=== PATIENT | female | born 1995 | race Caucasian/White ===

== ENCOUNTER → 2023-02-15 15:49 | Outpatient (BNVA) | payer BC, MEDICAID, SELFPAY | PROVIDERS: Family Provider Family Medicine; PCP Family Medicine; Visit Provider Podiatrist Foot & Ankle Surgery | DX: G58.9 Mononeuropathy, unspecified; M19.072 Primary osteoarthritis, left ankle and foot | CPT/HCPCS: 73610 ==

== ENCOUNTER → 2023-08-05 11:52 | Outpatient (BNVA) | payer BC, MEDICAID, SELFPAY | PROVIDERS: Family Provider Family Medicine; PCP Family Medicine; Visit Provider Registered Nurse Neonatal Intensive Care | DX: M79.671 Pain in right foot (principal) | CPT/HCPCS: 73630 ==

== ENCOUNTER 2023-09-28 12:06 | Outpatient (CLI) | payer BC, MEDICAID, SELFPAY ==
[2023-09-28 12:56] LABS: Basophils # 0.1 10^3/uL (0.0-0.1); Basophils % 0.9 %; Eosinophils # 0.1 10^3/uL (0.0-0.8); Eosinophils % 2.5 %; Hematocrit 41.5 % (36-47); Lymphocytes # 2.1 10^3/uL (0.8-4.8); Lymphocytes % 37.3 %; Mean Corpuscular HGB Conc 33.5 g/dL (30-55); Mean Corpuscular Hemoglobin 31.1 pg (27-33); Mean Corpuscular Volume 92.8 fl (85-98); Mean Platelet Volume 9.4 fL (7.4-10.4); Monocytes # 0.5 10^3/uL (0.2-0.9); Monocytes % 9.6 %; Neutrophils # 2.76 10^3/uL (1.8-7.7); Neutrophils % 49.3 %; Nucleated Red Blood Cells % 0 %; Platelet Count 340 10^3/cmm (157-399); Red Blood Count 4.47 10^6/uL (3.85-5.65); Red Cell Distribution Width 12.1 % (12.1-15.1)
[2023-09-28 13:34] LABS: Alanine Aminotransferase 12 U/L (0-33); Albumin Level 4.3 g/dL (3.5-5.2); Alkaline Phosphatase 63 U/L (35-105); Anion Gap 14.2 (5-19); Aspartate Amino Transferase 16 U/L (0-32); Blood Urea Nitrogen 9 mg/dL (6-20); Calcium 9.1 mg/dL (8.5-10.5); Carbon Dioxide 27 mmol/L (22-29); Chloride 107 mmol/L (98-107); Chol HDL Ratio 2.63 mg/dL (0.0-4.40); Cholesterol 184 mg/dL (0-200); Free T4 Free Thyroxine 0.87 ng/dL (0.82-1.77); Globulin 3.2 g/dL (1.3-4.6); Glomerular Filtration Rate 99.6 mL/min (90-130); Glucose 89 mg/dL (65-115); HDL Cholesterol 70 mg/dL (60-100); LDL Cholesterol Calculated 102 mg/dL (50-129); LDL HDL Ratio 1.46 RATIO (0.00-3.22); Osmolality Calculated 296 mOsm/kg (285-295); Potassium 4.2 mmol/L (3.5-5.1); Sodium 144 mmol/L (136-145); Thyroid Stimulating Hormone 7.74 uIU/mL (0.27-4.20); Total Bilirubin 0.3 mg/dL (0.15-1.2); Total Protein 7.5 g/dL (6.6-8.7); Triglycerides 60 mg/dL (0-150)
== END 2023-09-28 12:07 | disposition home or self-care (01) ==
LOC: LAB 12:07
PROVIDERS: Family Provider Family Medicine; PCP Family Medicine; Visit Provider Family Medicine
DX: E05.90 Thyrotoxicosis, unspecified without thyrotoxic crisis or storm (principal); Z86.39 Personal history of other endocrine, nutritional and metabolic disease
CPT/HCPCS: 36415; 80053; 80061; 84439; 84443; 85025

== ENCOUNTER 2024-01-15 14:44 | Outpatient (CLI) | payer BC, MEDICAID, SELFPAY ==
[2024-01-15 15:25] LABS: Free T4 Free Thyroxine 0.96 ng/dL (0.82-1.77); Thyroid Stimulating Hormone 10.74 uIU/mL (0.27-4.20)
== END 2024-01-15 14:45 | disposition home or self-care (01) ==
LOC: LAB 14:45
PROVIDERS: PCP Family Medicine; Visit Provider Family Medicine
DX: E05.90 Thyrotoxicosis, unspecified without thyrotoxic crisis or storm (principal); Z86.39 Personal history of other endocrine, nutritional and metabolic disease
CPT/HCPCS: 36415; 84439; 84443; 86376

== ENCOUNTER → 2024-03-29 18:57 | Outpatient (BNVA) | payer BC, MEDICAID, SELFPAY | PROVIDERS: PCP Family Medicine; Visit Provider Emergency Medicine | DX: S99.922A Unspecified injury of left foot, initial encounter (principal); X58.XXXA Exposure to other specified factors, initial encounter | CPT/HCPCS: 73630 ==

== ENCOUNTER → 2024-04-05 13:08 | Outpatient (BNVA) | payer BC, MEDICAID, SELFPAY | PROVIDERS: PCP Family Medicine; Visit Provider Family Medicine | DX: E06.3 Autoimmune thyroiditis (principal) | CPT/HCPCS: 84439; 84443 ==

== ENCOUNTER → 2024-04-12 17:34 | Outpatient (BNVA) | payer BC, MEDICAID, SELFPAY | PROVIDERS: PCP Family Medicine; Visit Provider Registered Nurse Neonatal Intensive Care | DX: N92.6 Irregular menstruation, unspecified (principal) | CPT/HCPCS: 81025 ==

== ENCOUNTER → 2024-05-09 09:36 | Outpatient (BNVA) | payer BC, MEDICAID, SELFPAY | PROVIDERS: PCP Family Medicine; Visit Provider Nurse Practitioner Women's Health | DX: Z32.01 Encounter for pregnancy test, result positive (principal) | CPT/HCPCS: 81025; 84702; 86850; 86900 ==

== ENCOUNTER 2024-05-14 07:08 | Emergency (ER) | payer BC, MEDICAID, SELFPAY ==
[2024-05-14 07:17] VITALS: BP 152/73; PULSE 83; RESP 16; TEMP 36.7; O2SAT 95; BMI 38.0
--- NOTE | 2024-05-14 07:17 | ED_ITS ---
HPI - 2 General: Chief complaint: Vaginal Bleeding Stated complaint: spotting (7wks preg) Time Seen by Provider: 05/14/24 07:15 History of Present Illness: 28-year-old female G2, P1 presents to [facility] ER complaining of spotting, she has blood when she wipes.. Has not had to use a pad. She reports she is 7 weeks she has not had confirmation of an intrauterine at this point. She has not established for this with an OB yet. Associated symptoms: Deny abdominal pain, dysuria or vaginal discharge Related Data Previous Rx's Medication Instructions Recorded sumatriptan succinate 25 mg tablet See Rx Instructions PO .COMPLEX 12/25/23 #10 tabs levocetirizine 5 mg tablet (Xyzal) 5 mg PO DAILY PRN allergy symptoms 04/05/24 #60 tabs metoprolol tartrate 25 mg tablet 12.5 mg (1/2 x 25 mg) PO BID #45 04/05/24 tabs levothyroxine 50 mcg tablet 50 mcg PO DAILY #60 tabs 04/08/24 ondansetron HCl 4 mg tablet 4 mg PO Q8H PRN nausea and 05/10/24 vomiting #60 tabs Allergies Allergy/AdvReac Type Severity Reaction Status Date / Time cephalexin [From Keflex] Allergy ALGY-Rash Verified 05/09/24 07:54 Review of Systems 2 Const: Denies: fever(s) or chills Card: Denies: chest pain Resp: Denies: dyspnea GI: Denies: abdominal pain : Reports: vaginal bleeding; Denies: dysuria, urinary frequency, urinary urgency or vaginal discharge Musc: Denies: neck pain or back pain Skin/Breast: Denies: rash PFSH ED 2 PFSH: Medical History Rhinorrhea Víctor's disease Subclinical hypothyroidism Obesity (BMI 35.0-39.9 without comorbidity) Migraine, chronic, without aura Hyperthyroidism Epistaxis Pes planus of both feet Metatarsalgia of right foot Plantar fasciitis, left Surgical History Hx of knee surgery History of tonsillectomy Family History Father Diabetes Mother Hypertension Grandfather Cancer Denies family history of CAD (coronary artery disease) Clotting disorder Dementia Hyperlipidemia Chronic kidney disease (CKD) Anesthesia complication Bleeding disorder Family history of premature coronary artery disease Social History Smoking and tobacco/nicotine status: former use of tobacco/nicotine (quit 06/2023) Alcohol intake: current Alcohol intake frequency: holidays/special occasions only Substance/Drug Use: never Adopted: No service: No Current occupational status: employed Current occupational exposures/hazards: No Physical Exam 2 Const: GENERAL APPEARANCE: cooperative ORIENTATION/CONSCIOUSNESS: Yes awake, Yes oriented to person, Yes oriented to place and Yes oriented to time HENMT: COMMON NORMALS: normocephalic, atraumatic and hearing grossly normal bilaterally HEAD & SCALP: normocephalic and atraumatic Resp: COMMON NORMALS: normal respiratory effort, No retractions, No use of accessory muscles and clear to auscultation bilaterally AUSCULTATION: clear to auscultation bilaterally Cardio: COMMON NORMALS: regular rate, regular rhythm and No murmurs present (Cardio) RATE: regular rate RHYTHM: regular rhythm GI: COMMON NORMALS: Soft to palpation and No hepatosplenomegaly present A USCULTATION: Yes normoactive bowel sounds PALPATION: Yes Soft to palpation, No Tenderness to palpation present (GI), No Guarding due to palpation present (GI) and Yes No hepatosplenomegaly present Extremity: COMMON NORMALS: normal to inspection, capillary refill normal, no clubbing, cyanosis or edema, no calf tenderness and no pedal edema Neuro: SENSORIUM/ORIENTATION: Yes oriented to person, Yes oriented to place and Yes oriented to time Skin: COMMON NORMALS: no rashes or lesions noted GENERAL SKIN EXAM: no rashes or lesions noted Course 2 Vital Signs: Vital signs: Vital Signs Temperature 98.1 F 05/14/24 07:17 Pulse Rate 56 L 05/14/24 12:10 Respiratory Rate 16 05/14/24 07:17 Blood Pressure 137/70 05/14/24 12:10 Pulse Oximetry 99 05/14/24 12:10 Oxygen Delivery Me thod Room Air 05/14/24 07:17 MDM - OB/Uterine Contractions Medical Decision Making No anemia. Ultrasound shows viable intrauterine with good heart tones. Beta-hCG has increased slightly. Discussed with the patient we will see signs are reassuring is no sign of bleeding. She may have had a subchorionic bleed in the past that she still passing a little bit of the old blood but there is no identifiable bleed at this time. Discharge home follow-up with OB as scheduled return if she has further problems Medical Records I reviewed the patient's medical records. Lab Data I reviewed the patient's lab results. 05/14/24 10:37 05/14/24 09:12 Radiology Impressions Obstetrics Ultrasound 05/14/24 07:41 IMPRESSION: Single living intrauterine . Size slightly advanced compared to clinical dates. Clinical review of the dating recommended. Laboratory Results WBC 9.72 10^3/uL (3.29-11.43) 05/14/24 10:37 RBC 5.53 10^6/uL (3.85-5.65) 05/14/24 10:37 Hgb 16.70 g/dL (11.27-16.99) 05/14/24 10:37 Hct 48.2 % (36-47) H 05/14/24 10:37 MCV 87.2 fl (85-98) 05/14/24 10:37 MCH 30.2 pg (27-33) 05/14/24 10:37 MCHC 34.6 g/dL (30-55) 05/14/24 10:37 RDW 11.7 % (12.1-15.1) L 05/14/24 10:37 Plt Count 254 10^3/cmm (157-399) 05/14/24 10:37 MPV 10.2 fL (7.4-10.4) 05/14/24 10:37 Neut % (Auto) 69.0 % 05/14/24 10:37 Lymph % (Auto) 23.1 % 05/14/24 10:37 [place] % (Auto) 6.0 % 05/14/24 10:37 Eos % (Auto) 0.6 % 05/14/24 10:37 Baso % (Auto) 0.6 % 05/14/24 10:37 Neut # (Auto) 6.70 10^3/uL (1.8-7.7) 05/14/24 10:37 Lymph # (Auto) 2.3 10^3/uL (0.8-4.8) 05/14/24 10:37 [place] # (Auto) 0.6 10^3/uL (0.2-0.9) 05/14/24 10:37 Eos # (Auto) 0.1 10^3/uL (0.0-0.8) 05/14/24 10:37 Baso # (Auto) 0.1 10^3/uL (0.0-0.1) 05/14/24 10:37 Nucleated RBC % (auto) 0 % 05/14/24 10:37 Nucleated RBCs # 0.0 /100WBC 05/14/24 10:37 Sodium 137 mmol/L (136-145) 05/14/24 09:12 Potassium 3.7 mmol/L (3.5-5.1) 05/14/24 09:12 Chloride 101 mmol/L (98-107) 05/14/24 09:12 Carbon Dioxide 22 mmol/L (22-29) 05/14/24 09:12 Anion Gap 17.7 (5-19) 05/14/24 09:12 BUN 6 mg/dL (6-20) 05/14/24 09:12 Creatinine 0.6 mg/dL (0.5-0.9) 05/14/24 09:12 GFR Calculation 118.2 mL/min (90-130) 05/14/24 09:12 Glucose 85 mg/dL (65-115) 05/14/24 09:12 Calculated Osmolality 281 mOsm/kg (285-295) L 05/14/24 09:12 Calcium 9.1 mg/dL (8.5-10.5) 05/14/24 09:12 Total Bilirubin 0.5 mg/dL (0.15-1.2) 05/14/24 09:12 AST 14 U/L (0-32) 05/14/24 09:12 ALT 13 U/L (0-33) 05/14/24 09:12 Alkaline Phosphatase 61 U/L (35-105) 05/14/24 09:12 Total Protein 6.9 g/dL (6.6-8.7) 05/14/24 09:12 Albumin 4.0 g/dL (3.5-5.2) 05/14/24 09:12 Globulin 2.9 g/dL (1.3-4.6) 05/14/24 09:12 Ser , Semi-Qnt 758972.00 mIU/mL 05/14/24 09:12 Urine Color Dark yellow (Yellow) A 05/14/24 08:53 Urine Appearance Clear (CLEAR) 05/14/24 08:53 Urine pH 6.0 (5-7) 05/14/24 08:53 Ur Specific [place] 1.028 (1.005-1.030) 05/14/24 08:53 Urine Protein Trace (Negative) A 05/14/24 08:53 Urine Glucose (UA) Negative (Normal) 05/14/24 08:53 Urine Ketones 1+ (Negative) H 05/14/24 08:53 Urine Blood Trace (Negative) A 05/14/24 08:53 Urine Nitrate Negative (Negative) 05/14/24 08:53 Urine Bilirubin Negative (Negative) 05/14/24 08:53 Urine Urobilinogen 1.0 mg/dL (Negative) 05/14/24 08:53 Ur Leukocyte Esterase Trace (Negative) A 05/14/24 08:53 Urine RBC 0-2 /hpf (0-2) 05/14/24 08:53 Urine WBC 0-5 /hpf (0-5) 05/14/24 08:53 Ur Squamous Epith Cells 0-5 /hpf (0-5) 05/14/24 08:53 Amorphous Sediment Not Reportable 05/14/24 08:53 Urine Bacteria None seen /hpf (NONE) 05/14/24 08:53 Hyaline Casts 0.40 /lpf 05/14/24 08:53 All radiology interpretation(s) finalized by discharge Discharge Plan Discharge Patient Disposition: Home Clinical Impression: First trimester bleeding Condition: Stable Prescriptions: No Action sumatriptan succinate 25 mg tablet See Rx Instructions PO .COMPLEX Qty: 10 0RF Rx Instructions: take 1 tab at onset of headache; if no relief may repeat 1 tab after at least 2 hrs; max = 4 tabs/24 hr PO metoprolol tartrate 25 mg tablet 12.5 mg PO BID Qty: 45 1RF levocetirizine [Xyzal] 5 mg tablet 5 mg PO DAILY PRN (Reason: allergy symptoms) Qty: 60 0RF levothyroxine 50 mcg tablet 50 mcg PO DAILY Qty: 60 1RF ondansetron HCl 4 mg tablet 4 mg PO Q8H PRN (Reason: nausea and vomiting) Qty: 60 2RF Discharge Orders: Discharge ED (Routine); Ordered 05/14/24 Ordered By: Mk Oliveira Referrals: Victorino Tellez MD [Primary Care Provider] - Patient Instructions: Opioid Safety, Pain Management Activity Restrictions/Additional Instructions: Thank you for choosing [facility] for your healthcare needs today. It is very important that you follow up as instructed or that you return to the Emergency Department should you have concerns or if your condition changes or worsens in any way. You were seen in the emergency room with complaints of vaginal bleeding first trimester. Ultrasound showed a viable consistent with your LMP dating. Your hemoglobin was normal urine was normal. Follow-up with your CLIENT RESOLUTION SPECIALIST. Coding Level of Care Code ED Care Aid for Tiffany Brooke
--- NOTE | 2024-05-14 07:41 | USR_ITS ---
PROCEDURE INFORMATION: Exam: US First Trimester, Transabdominal and US , Transvaginal Exam date and time: 05/14/2024 7:49 AM Age: 28 years old Clinical indication: Screening exam; Routine US, uterus; Additional info: Spotting LABS AND CLINICAL REPORTS: Last menstrual period start date: 03/22/2024 Gestational age (Established): 7 w 4 d Estimated due date (Established): 12/27/2024 TECHNIQUE: Imaging protocol: Real-time transabdominal obstetrical ultrasound of the maternal pelvis and a first trimester , less than 14 weeks 0 days, with image documentation. Transvaginal imaging was used for better evaluation of the fetus, adnexa, and/or cervix. COMPARISON: No relevant prior studies available. FINDINGS: GESTATION: Gestation: Single living intrauterine . Yolk sac measures 3.5 mm. Embryo/ cardiac activity (BPM): 165 bpm. Extra-embryonic membranes/Placenta: Unremarkable. No subchorionic bleed. Amniotic/Chorionic fluid: Amniotic and extra-amniotic fluid are normal for gestational age. BIOMETRY: Gestational age (AUA): 8 weeks 2 days; compare LMP 7 weeks 4 days. Estimated due date (AUA): 12/22/2024; compare LMP 12/30/2024. [place] rump length (CRL): 8 weeks 2 days. Mean sac diameter: 2.83 cm. EGA (MSD) is 7 w 6 d MATERNAL: Uterus: 11.7 x 8.4 x 8.5 cm transabdominally, 11.5 x 6.7 x 7.1 cm transvaginally Anteflexed, retroverted. Cervix: Unremarkable. Endocervical canal is closed. Right ovary/adnexa: Right ovary. Right ovary 3.7 x 2.2 x 3.3 cm. 1.7 cm corpus luteum. No cyst or mass. Normal arterial and venous color and pulsed Doppler blood flow. Left ovary/adnexa: Left ovary 2.9 x 2.4 x 2.4 cm. No cyst or mass. Normal arterial and venous color and pulsed Doppler blood flow. Intraperitoneal space: No intraperitoneal free fluid. US/US OB <=14 wk fetus w transvag IMPRESSION: Single living intrauterine . Size slightly advanced compared to clinical dates. Clinical review of the dating recommended.
[2024-05-14 09:10] LABS: Bilirubin Urine Negative (Negative); Blood Urine Trace (Negative); Glucose Urine UA Negative (Normal); Ketones Urine 1+ (Negative); Leukocyte Esterase Urine Trace (Negative); Nitrate Urine Negative (Negative); Protein Urine Trace (Negative); Specific Gravity, Urine 1.028 (1.005-1.030); Urine Appearance Clear (CLEAR); Urine Color Dark Yellow (Yellow)
[2024-05-14 09:15] LABS: Add Urine Microscopic? YES; Bacteria Urine None Seen /hpf; RBC Urine 0-2 /hpf (0-2); Squamous Epithelial Cell Urine 0-5 /hpf (0-5); WBC Urine 0-5 /hpf (0-5)
[2024-05-14 09:33] LABS: Alanine Aminotransferase 13 U/L (0-33); Alkaline Phosphatase 61 U/L (35-105); Aspartate Amino Transferase 14 U/L (0-32); Blood Urea Nitrogen 6 mg/dL (6-20); Calcium 9.1 mg/dL (8.5-10.5); Carbon Dioxide 22 mmol/L (22-29); Chloride 101 mmol/L (98-107); Creatinine Clr Calc Pharmacy 177.0137; Globulin 2.9 g/dL (1.3-4.6); Glomerular Filtration Rate 118.2 mL/min (90-130); Glucose 85 mg/dL (65-115); Osmolality Calculated 281 mOsm/kg (285-295); Sodium 137 mmol/L (136-145); Total Bilirubin 0.5 mg/dL (0.15-1.2); Total Protein 6.9 g/dL (6.6-8.7)
[2024-05-14 09:36] LABS: Anion Gap 17.7 (5-19); Potassium 3.7 mmol/L (3.5-5.1)
[2024-05-14 10:24] VITALS: BP 137/72; PULSE 51; O2SAT 100
[2024-05-14 11:01] LABS: Basophils # 0.1 10^3/uL (0.0-0.1); Basophils % 0.6 %; Eosinophils # 0.1 10^3/uL (0.0-0.8); Eosinophils % 0.6 %; Hematocrit 48.2 % (36-47); Lymphocytes # 2.3 10^3/uL (0.8-4.8); Lymphocytes % 23.1 %; Mean Corpuscular HGB Conc 34.6 g/dL (30-55); Mean Corpuscular Hemoglobin 30.2 pg (27-33); Mean Corpuscular Volume 87.2 fl (85-98); Mean Platelet Volume 10.2 fL (7.4-10.4); Monocytes # 0.6 10^3/uL (0.2-0.9); Nucleated Red Blood Cells % 0 %; Platelet Count 254 10^3/cmm (157-399); Red Blood Count 5.53 10^6/uL (3.85-5.65); Red Cell Distribution Width 11.7 % (12.1-15.1); White Blood Count 9.72 10^3/uL (3.29-11.43)
[2024-05-14 12:10] VITALS: BP 137/70; PULSE 56; O2SAT 99
== END 2024-05-14 11:30 | disposition home or self-care (01) ==
PROVIDERS: Emergency Provider Family Medicine; PCP Family Medicine
DX: O20.9 Hemorrhage in early pregnancy, unspecified (principal); Z3A.01 Less than 8 weeks gestation of pregnancy; Z87.891 Personal history of nicotine dependence
CPT/HCPCS: 36415; 76801; 76817; 80053; 81001; 84702; 85025; 99284

== ENCOUNTER → 2024-05-20 14:14 | Outpatient (BNVA) | payer BC, MEDICAID, SELFPAY | PROVIDERS: PCP Family Medicine; Visit Provider Nurse Practitioner Women's Health | DX: Z36.9 Encounter for antenatal screening, unspecified (principal) | CPT/HCPCS: 76801 ==

== ENCOUNTER → 2024-05-28 14:59 | Outpatient (BNVA) | payer BC, MEDICAID, SELFPAY | PROVIDERS: PCP Family Medicine; Visit Provider Nurse Practitioner Women's Health | DX: Z34.91 Encounter for supervision of normal pregnancy, unspecified, first trimester (principal); Z3A.10 10 weeks gestation of pregnancy | CPT/HCPCS: 76801 ==

== ENCOUNTER → 2024-06-03 09:01 | Outpatient (BNVA) | payer BC, MEDICAID, SELFPAY | PROVIDERS: PCP Family Medicine; Visit Provider Nurse Practitioner Women's Health | DX: Z34.90 Encounter for supervision of normal pregnancy, unspecified, unspecified trimester (principal) | CPT/HCPCS: 80307; 84315; 84439; 84443; 84481; 85025; 86592; 86762; 86803; 86850; 86900; 87086; 87340; 87491; 87591; 87661; 87806 ==

== ENCOUNTER 2024-06-15 23:49 | Emergency (ER) | payer BC, MEDICAID, SELFPAY ==
[2024-06-15 23:54] VITALS: BP 123/87; PULSE 109; RESP 16; TEMP 36.4; O2SAT 96; BMI 35.9
[2024-06-16 00:45] LABS: Covid PCR NEGATIVE (Negative); Influenza A NEGATIVE (Negative); Influenza B NEGATIVE (Negative); Respiratory Syncytial Virus Ce NEGATIVE (Negative)
== END 2024-06-16 03:35 | disposition left against medical advice (07) ==
PROVIDERS: Emergency Medicine; Emergency Provider Family Medicine; PCP Family Medicine
DX: Z53.21 Procedure and treatment not carried out due to patient leaving prior to being seen by health care provider (principal)
CPT/HCPCS: 87637

== ENCOUNTER → 2024-06-19 10:20 | Outpatient (BNVA) | payer BC, MEDICAID, SELFPAY | PROVIDERS: PCP Family Medicine; Visit Provider Obstetrics & Gynecology | DX: Z34.90 Encounter for supervision of normal pregnancy, unspecified, unspecified trimester (principal); Z34.80 Encounter for supervision of other normal pregnancy, unspecified trimester | CPT/HCPCS: 82950; 84315; 87624 ==

== ENCOUNTER → 2024-07-15 08:02 | Outpatient (BNVA) | payer BC, MEDICAID, SELFPAY | PROVIDERS: PCP Family Medicine; Visit Provider Nurse Practitioner Women's Health | DX: Z34.92 Encounter for supervision of normal pregnancy, unspecified, second trimester (principal) | CPT/HCPCS: 82105; 84315 ==

== ENCOUNTER → 2024-08-13 09:32 | Outpatient (BNVA) | payer BC, MEDICAID, SELFPAY | PROVIDERS: PCP Family Medicine; Visit Provider Obstetrics & Gynecology | DX: Z34.80 Encounter for supervision of other normal pregnancy, unspecified trimester (principal) | CPT/HCPCS: 76805 ==

== ENCOUNTER → 2024-08-19 08:31 | Outpatient (BNVA) | payer BC, MEDICAID, SELFPAY | PROVIDERS: PCP Family Medicine; Visit Provider Obstetrics & Gynecology | DX: Z3A.10 10 weeks gestation of pregnancy (principal) | CPT/HCPCS: 84315 ==

== ENCOUNTER → 2024-09-09 11:04 | Outpatient (BNVA) | payer BC, MEDICAID, SELFPAY | PROVIDERS: PCP Family Medicine; Visit Provider Nurse Practitioner Women's Health | DX: Z34.80 Encounter for supervision of other normal pregnancy, unspecified trimester (principal) | CPT/HCPCS: 84315 ==

== ENCOUNTER → 2024-10-16 13:45 | Outpatient (BNVA) | payer BC, MEDICAID, SELFPAY | PROVIDERS: PCP Family Medicine; Visit Provider Obstetrics & Gynecology | DX: Z34.92 Encounter for supervision of normal pregnancy, unspecified, second trimester (principal); Z67.91 Unspecified blood type, Rh negative | CPT/HCPCS: 82950; 84315; 84439; 84443; 84481; 85025; 86850 ==

== ENCOUNTER → 2024-10-21 09:56 | Outpatient (BNVA) | payer BC, MEDICAID, SELFPAY | PROVIDERS: PCP Family Medicine; Visit Provider Obstetrics & Gynecology | DX: O26.899 Other specified pregnancy related conditions, unspecified trimester (principal); Z67.91 Unspecified blood type, Rh negative; Z3A.30 30 weeks gestation of pregnancy | CPT/HCPCS: 84315 ==

== ENCOUNTER → 2024-11-04 09:02 | Outpatient (BNVA) | payer BC, MEDICAID, SELFPAY | PROVIDERS: PCP Family Medicine; Visit Provider Nurse Practitioner Women's Health | DX: Z34.90 Encounter for supervision of normal pregnancy, unspecified, unspecified trimester (principal) | CPT/HCPCS: 84315 ==

== ENCOUNTER → 2024-11-18 10:25 | Outpatient (BNVA) | payer BC, MEDICAID, SELFPAY | PROVIDERS: PCP Family Medicine; Visit Provider Nurse Practitioner Women's Health | DX: Z34.90 Encounter for supervision of normal pregnancy, unspecified, unspecified trimester (principal) | CPT/HCPCS: 76816; 84315 ==

== ENCOUNTER → 2024-12-02 08:58 | Outpatient (BNVA) | payer BC, MEDICAID, SELFPAY | PROVIDERS: PCP Family Medicine; Visit Provider Obstetrics & Gynecology | DX: Z34.90 Encounter for supervision of normal pregnancy, unspecified, unspecified trimester (principal); E05.90 Thyrotoxicosis, unspecified without thyrotoxic crisis or storm | CPT/HCPCS: 84315; 84443; 87081 ==

== ENCOUNTER → 2024-12-09 09:11 | Outpatient (BNVA) | payer BC, MEDICAID, SELFPAY | PROVIDERS: PCP Family Medicine; Visit Provider Obstetrics & Gynecology | DX: Z34.90 Encounter for supervision of normal pregnancy, unspecified, unspecified trimester (principal) | CPT/HCPCS: 84315 ==

== ENCOUNTER → 2024-12-16 08:15 | Outpatient (BNVA) | payer BC, MEDICAID, SELFPAY | PROVIDERS: PCP Family Medicine; Visit Provider Nurse Practitioner Women's Health | DX: Z34.90 Encounter for supervision of normal pregnancy, unspecified, unspecified trimester (principal) | CPT/HCPCS: 84315 ==

== ENCOUNTER → 2024-12-23 09:51 | Outpatient (BNVA) | payer BC, MEDICAID, SELFPAY | PROVIDERS: PCP Family Medicine; Visit Provider Obstetrics & Gynecology | DX: Z34.90 Encounter for supervision of normal pregnancy, unspecified, unspecified trimester (principal) | CPT/HCPCS: 84315 ==

== ENCOUNTER 2024-12-24 04:16 | Inpatient (IN) | payer BC, MEDICAID, SELFPAY ==
[2024-12-24] VITALS (119 sets, daily range): BP systolic 86–181; BP diastolic 50–100; PULSE 51–103; RESP 16–17; TEMP 36.5–37.2; O2SAT 92–100; BMI 43.5
[2024-12-24 03:49] LABS: Hematocrit 35.3 % (36-47); Hemoglobin 11.70 g/dL (11.27-16.99); Mean Corpuscular HGB Conc 33.1 g/dL (30-55); Mean Corpuscular Hemoglobin 28.9 pg (27-33); Mean Corpuscular Volume 87.2 fl (85-98); Nucleated Red Blood Cells % 0 %; Platelet Count 342 10^3/cmm (157-399); Red Blood Count 4.05 10^6/uL (3.85-5.65); White Blood Count 11.67 10^3/uL (3.29-11.43)
--- NOTE | 2024-12-24 04:45 | PM.OBGYHP ---
Providers/Chief Complaint Admitting Physician: Murali Brooks MD Primary UI APPLICATION DEVELOPER: Murali Brooks MD Primary Care Provider: Victorino Tellez MD Chief Complaint: Contractions HPI UI APPLICATION DEVELOPER History of Present Illness Marisol Waller is a 29 year old female EDC December 27, 2024 At 39 w 4 d No complications c/o painful uterine contractions no bleeding / fluid leakage + movements Present Details : 2 Para: 1 Labs Rubella: Immune RPR: Negative GBS: Positive Medications/Allergies Home Medications ?Medication ?Instructions ?Recorded ?Confirmed ?Last Taken ?Type sumatriptan succinate 25 mg tablet See Rx Instructions PO .COMPLEX 12/25/23 12/24/24 12/23/24 Rx #10 tabs metoprolol tartrate 25 mg tablet 12.5 mg (1/2 x 25 mg) PO BID #45 12/16/24 12/24/24 12/23/24 Rx tabs levothyroxine 75 mcg tablet See Rx Instructions .Route 12/20/24 12/24/24 12/23/24 Rx .COMPLEX #30 tabs Allergies Allergy/AdvReac Type Severity Reaction Status Date / Time cephalexin (From Keflex) Allergy ALGY-Rash Verified 12/24/24 03:39 PFSH UI APPLICATION DEVELOPER PFSH: Medical History Rhinorrhea Víctor's disease Subclinical hypothyroidism Obesity (BMI 35.0-39.9 without comorbidity) Migraine, chronic, without aura Hyperthyroidism Epistaxis Pes planus of both feet Metatarsalgia of right foot Plantar fasciitis, left Surgical History Hx of knee surgery History of tonsillectomy Family History Father Diabetes Mother Hypertension Grandfather Cancer Denies family history of CAD (coronary artery disease) Clotting disorder Dementia Hyperlipidemia Chronic kidney disease (CKD) Anesthesia complication Bleeding disorder Family history of premature coronary artery disease Social History Smoking and tobacco/nicotine status: never used tobacco/nicotine Alcohol intake: current Alcohol intake frequency: holidays/special occasions only Substance/Drug Use: never Adopted: No service: No Current occupational status: employed Current occupational exposures/hazards: No History History History 2 Term 1 0 Miscarriages/Ectopic 0 Living Children 1 Care 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 Estimated Delivery Date Method Current WG Current Estimate 12/27/24 LMP (Certain) 39w 5d Other Estimates 12/22/24 Ultrasound #1 40w 3d Specific Issues/Plans NAUSEA: Reglan and zofran sent for use as needed CONSTIPATION: colace sent to pharmacy, discussed using zofran sparingly MIGRAINES: takes metoprolol daily for migraine prevention, sumatriptan as needed RH NEGATIVE STATUS VÍCTOR'S: takes 75 mcg levothyroxine daily Vitals/I&O/Wt Last Vital Signs Temp 97.7 F 12/24/24 20:50 Pulse 84 12/25/24 00:28 Resp 16 12/25/24 00:28 BP 121/71 12/25/24 00:28 Pulse Ox 98 12/24/24 20:50 O2 Del Method Room Air 12/24/24 20:50 12/24/24 12/24/24 12/25/24 14:59 22:59 06:59 Intake Total 875 / 875 1550 / 2425 Output Total 800 / 800 Balance 875 / 875 750 / 1625 Weight last 48 hrs Weight 278 lb 0.011 oz Weight 278 lb Physical Exam Narrative: Weight 278 lbs; 5?7? General awake, alert, appropriate VS normal Lungs: clear Cor: RRR FH 38 cm, cephalic Cervix: 4 ? 5 cm / 75% / -2 Ext: no edema External monitor: regular UCs heart tracing good variability, + accelerations Urinary Catheter Management: [place] Latex: Cath Placed During This Visit: yes, but has since been removed by the nurse Reason for Continuing Indwelling Catheter: Decision to DC Catheter Urinary Catheter Date of Insertion: 12/24/24 Urinary Catheter Time of Insertion: 06:45 Date Urinary Catheter Removed: 12/24/24 Time Urinary Catheter Discontinued: 15:50 Data 12/24/24 03:20 Results Labs OB ([facility]): Obstetrics US 11/18/24 Blood Type O Negative 12/24/24 Antibody Screen Negative 12/24/24 Hct, (36-47) 35.3 % L 12/24/24 Hgb, (11.27-16.99) 11.70 g/dL 12/24/24 Rho(D) Type Rh negative 12/24/24 Plt Count, (157-399) 342 10^3/cmm 12/24/24 Hep Bs Antigen, (Nonreactive) Non-reactive 06/03/24 Hepatitis C Antibody, (Nonreactive) Non-reactive 06/03/24 Rubella IgG Antibody, (0.0-10.0) 56.4 IU/mL H 06/03/24 RPR, (Nonreactive) Nonreactive 06/03/24 HIV 1&2 Ab & HIV 1 Ag, (Non-Reactiv) Non-reactive 06/03/24 TSH, (0.27-4.20) 5.10 uIU/mL H 12/02/24 Free T4, (0.82-1.77) 0.78 ng/dL L 10/16/24 Glucose 1 Hr 50 gm, (85-140) 97 mg/dL 10/16/24 Ser , Semi-Qnt 331572.00 mIU/mL 05/14/24 HCG, Qual, (Negative) Positive H 05/09/24 Urine Opiates Screen, (Negative) Negative ng/mL 12/24/24 Ur Barbiturates Screen, (Negative) Negative ng/mL 12/24/24 Ur Phencyclidine Scrn, (Negative) Negative ng/mL 12/24/24 Ur Amphetamines Screen, (Negative) Negative ng/mL 12/24/24 U Benzodiazepines Scrn, (Negative) Negative ng/mL 12/24/24 Urine Cocaine Screen, (Negative) Negative ng/mL 12/24/24 U Marijuana (THC) Screen, (Negative) Negative ng/mL 12/24/24 Micro Urine Specimen 06/03/24 Pap Smear Interpret See note 06/19/24 A&P Assessment and plan 1. : 39 w 4 d Active labor Fetus reassuring Admit Labor management Rh negative GBS + Start Abx per protocol 2. Rh negative status during : PDMP PDMP Reviewed: Not Reviewed Attestations Medical Necessity Statement*: patient at term, with active labor Coding Level of Care Code Acute Code for Chg Fwd Diagnoses Z34.90 Rh negative status during O26.899; Z67.91
[2024-12-24 04:47] LABS: PCP Screen Urine Negative (Negative)
[2024-12-24] MEDS: ROPivacaine syringe 100 MG/50 ML SYRINGE 13 MG EPIDURAL (05:36)
--- NOTE | 2024-12-24 05:37 | ANES.PREANE2 ---
Pre-Anesthetic Assessment Height/Weight: Height 1.7 m Weight 126.099 kg Pulse BP Pulse Ox 70 135/68 98 12/24/24 05:32 12/24/24 05:32 12/24/24 05:32 Preop Diagnosis: IUP Familial anesthetic complications: none Was Beta Neha taken within 24 hours: Yes Was Clonidine taken within 24 hours: N/A Social No alcohol and No tobacco Exam alert and oriented x 3 Airway Submandibular: within normal limits Cervical ROM: within normal limits Mallampati: Class II Dentition: full Pulmonary None reported CV/HEM Hypertension None reported Hepatic None reported GI None reported Metabolic Morbid Obesity [facility] None reported Neuropsych Headache Anesthetic Plan ASA status: 3 Anesthesia: Anesthesia Evaluation and Regional (specify below) Risk of > 500 ml blood loss (7ml/kg in children): Yes, adequate IV access and fluids planned Medications/Allergies Home Medications ?Medication ?Instructions ?Recorded ?Confirmed ?Last Taken ?Type sumatriptan succinate 25 mg tablet See Rx Instructions PO .COMPLEX 12/25/23 12/24/24 12/23/24 Rx #10 tabs metoprolol tartrate 25 mg tablet 12.5 mg (1/2 x 25 mg) PO BID #45 12/16/24 12/24/24 12/23/24 Rx tabs levothyroxine 75 mcg tablet See Rx Instructions .Route 12/20/24 12/24/24 12/23/24 Rx .COMPLEX #30 tabs Allergies Allergy/AdvReac Type Severity Reaction Status Date / Time cephalexin (From Keflex) Allergy ALGY-Rash Verified 12/24/24 03:39 [facility] Anesthesia Medical History Rhinorrhea Víctor's disease Subclinical hypothyroidism Obesity (BMI 35.0-39.9 without comorbidity) Migraine, chronic, without aura Hyperthyroidism Epistaxis Pes planus of both feet Metatarsalgia of right foot Plantar fasciitis, left Surgical History Hx of knee surgery History of tonsillectomy Family History Father Diabetes Mother Hypertension Grandfather Cancer Denies family history of CAD (coronary artery disease) Clotting disorder Dementia Hyperlipidemia Chronic kidney disease (CKD) Anesthesia complication Bleeding disorder Family history of premature coronary artery disease Social History Smoking and tobacco/nicotine status: never used tobacco/nicotine Alcohol intake: current Alcohol intake frequency: holidays/special occasions only Substance/Drug Use: never Adopted: No service: No Current occupational status: employed Current occupational exposures/hazards: No Female Reproductive History : 2 Data Anesthesia 12/24/24 03:20 Short CBC 12/24/24 Range/Units 03:20 WBC 11.67 H (3.29-11.43) 10^3/uL Hgb 11.70 (11.27-16.99) g/dL Hct 35.3 L (36-47) % MCV 87.2 (85-98) fl Plt Count 342 (157-399) 10^3/cmm Neut % (Auto) 65.8 % Neut # (Auto) 7.68 (1.8-7.7) 10^3/uL Blood Bank 12/24/24 03:20 Blood Type O Negative Rho(D) Type Rh negative Antibody Screen Negative Anesthesia Procedures Epidural Time Out Performed: Yes Consents Signed: Procedure Consent Consent: from patient, risks and benefits reviewed and patient agrees to proceed Lumbar Level: L3-L4 Epidural position: sitting Epidural procedure: sterile prep of area, 1% lidocaine to numb the area, 18 g needle, negative for paresthesia passed, neg for paresthesia, test dose given, 1.5% xylocaine 1:200k epi, placed PCEA, no systemic response, sterile dressing applied, L.U.D. no apparent complications and 0.2% Ropiavacaine @ mls/hr (13) Additional Comments: JESUS at 7.5, negative heme/CSF wiht aspiration. taped at 13 at skin. tolerated well.
[2024-12-24] MEDS: ROPivacaine syringe 100 MG/50 ML SYRINGE 11 MG EPIDURAL ×2 (09:26→13:24)
[2024-12-24] MEDS: oxytocin 30 UNIT/500 ML BAG 600 UNIT IV (16:05)
[2024-12-24] MEDS: lidocaine 2% INJ 20 mL INJECTION (16:14)
--- NOTE | 2024-12-24 16:30 | PM.DELIVERY ---
Delivery Note: Date of delivery: December 24, 2024 Pre-delivery diagnoses: 39 w 4 d active labor Post-delivery diagnoses: 39 w 4 d active labor Procedure: vaginal delivery repair of loida-urethral and labial lacerations Op report anesthesia: Epidural Delivering Physician: Murali Brooks MD Estimated blood loss (mL): 300 Findings: , vigorous Nuchal cord x three Cord gases and blood obtained Normal placenta and cord No episiotomy Superficial periurethral and labial lacerations repaired EBL: 300 cc No complications Pre-Delivery Course: normal labor course fetus reassuring throughout Delivery: vaginal Post-Delivery Status: good History History History 2 Term 1 0 Miscarriages/Ectopic 0 Living Children 1 A&P Assessment and plan 1. Vaginal delivery: PDMP PDMP Reviewed: Not Reviewed Coding Level of Care Code Acute Code for Chg Fwd Diagnoses Vaginal delivery O80
[2024-12-24] MEDS: benzocaine-menthol 78 gm Canister 1 SPRAY TOPICAL (17:58)
[2024-12-25 00:28] VITALS: BP 121/71; PULSE 84; RESP 16
[2024-12-25 04:09] LABS: Hematocrit 31.6 % (36-47); Hemoglobin 10.30 g/dL (11.27-16.99); Mean Corpuscular HGB Conc 32.6 g/dL (30-55); Mean Corpuscular Hemoglobin 29.2 pg (27-33); Mean Corpuscular Volume 89.5 fl (85-98); Platelet Count 263 10^3/cmm (157-399); Red Blood Count 3.53 10^6/uL (3.85-5.65); White Blood Count 16.47 10^3/uL (3.29-11.43)
[2024-12-25 04:18] VITALS: BP 142/84; PULSE 80; RESP 16; TEMP 36.6; O2SAT 99
--- NOTE | 2024-12-25 08:00 | ANE.PACU2 ---
Inpatient post-anesthesia follow up: Airway intact: Yes Vital signs: Temperature 98.0 F Pulse Rate 82 Respiratory Rate 18 Blood Pressure 138/90 Pulse Oximetry 99 Oxygen Delivery Me thod Room Air Oxygen Flow Rate Fraction of Inspir ed Oxygen Hydration adequate: Yes Nausea and vomiting: No Pain level: 1 Mental status: Baseline Epidural Start/End: Epidural Start Date: 12/24/24 Epidural Start Time: 05:15 Epidural End Date: 12/24/24 Epidural End Time: 17:18
[2024-12-25 10:00] VITALS: BP 146/98; PULSE 68; RESP 16; TEMP 36.8
[2024-12-25] MEDS: PRENATAL VIT NO.130/IRON/FOLIC 1 EACH TABLET PO (10:07)
[2024-12-25 12:27] VITALS: BP 130/78; PULSE 70; RESP 17; O2SAT 98
--- NOTE | 2024-12-25 12:55 | P.PN_ITS ---
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 Subjective: Interval history: no c/o no headaches, dizziness, nausea, abdominal pain, bleeding normal lochia mild perineal pain, relieved with pain meds eating, voiding, ambulating well Labor: Station: +2 Amniotic Membrane Status: Ruptured Monitor Mode: Palpation Contraction Pattern: Regular Status: Category I Vitals/I&O/Wt Last Vital Signs Temp 97.9 F 12/26/24 04:54 Pulse 70 12/26/24 04:54 Resp 16 12/26/24 04:54 BP 153/77 12/26/24 04:54 Pulse Ox 99 12/26/24 04:54 O2 Del Method Room Air 12/26/24 04:54 12/25/24 12/26/24 12/26/24 22:59 06:59 14:59 Intake Total 1999 Balance 1999 Physical Exam 2 Narrative: afebrile, VS normal comfortable, awake, alert Abd: soft, nontender. fundus firm Ext: no edema; nontender Urinary Catheter Management: [place] Latex: Cath Placed During This Visit: yes, but has since been removed by the nurse Reason for Continuing Indwelling Catheter: Decision to DC Catheter Urinary Catheter Date of Insertion: 12/24/24 Urinary Catheter Time of Insertion: 06:45 Date Urinary Catheter Removed: 12/24/24 Time Urinary Catheter Discontinued: 15:50 Data 12/25/24 04:00 A&P Assessment and plan 1. Vaginal delivery: PPD #1 doing well normal course continue care PDMP PDMP Reviewed: Not Reviewed Attestations 2 Medical Necessity Statement*: patient s/p vaginal delivery, for care Coding Level of Care Code Acute Code for Chg Fwd Diagnoses Vaginal delivery O80
[2024-12-25 16:40] VITALS: BP 135/89; PULSE 70; RESP 17; TEMP 36.8
[2024-12-25 22:44] VITALS: BP 129/94; PULSE 82; TEMP 36.6; O2SAT 98
[2024-12-26 04:54] VITALS: BP 153/77; PULSE 70; RESP 16; TEMP 36.6; O2SAT 99
[2024-12-26] MEDS: PRENATAL VIT NO.130/IRON/FOLIC 1 EACH TABLET PO (09:19)
[2024-12-26 10:00] VITALS: BP 144/83; PULSE 77; RESP 18; TEMP 36.7; O2SAT 98
--- NOTE | 2024-12-26 13:05 | PM.OBGYDC ---
Discharge Providers RN DOCUMENTATION Date of Admission: 12/24/24 04:16 Date of Discharge: 12/26/24 Attending Provider at Admission: Murali Brooks MD Attending Provider at Discharge: Murali Brooks MD Consults: none Primary RN DOCUMENTATION: Murali Brooks MD Primary Care Provider: Victorino Tellez MD Diagnoses at Discharge Discharge Diagnosis 1. Vaginal delivery: Details from hospital stay: 29 y.o. at 39 w 4 d admitted with c/o painful uterine contractions cervix was 4-5 cm on admission patient progressed to complete dilatation fetus was reassuring throughout patient delivered vaginally without any complications small periurethral and labial lacerations were repaired patient did well and was discharged to home on the second day Reason for Visit Reason for Visit: Contractions Brief History: 29 y.o. at 39 w 4 d admitted with c/o painful uterine contractions Hospital Course Hospital Course 29 y.o. at 39 w 4 d admitted with c/o painful uterine contractions cervix was 4-5 cm on admission patient progressed to complete dilatation fetus was reassuring throughout patient delivered vaginally without any complications small periurethral and labial lacerations were repaired patient did well and was discharged to home on the second day Information Peripartum Data: Infant Delivery Method: Vaginal Laceration description: Periurethral - 1st Degree Episiotomy description: None complications: none Physical Exam Narrative: afebrile, VS normal comfortable, awake, alert Lungs: clear Cor: RRR Abd: soft, nontender. fundus firm Ext: no edema; nontender Hgb 10.3 Urinary Catheter Management: [place] Latex: Cath Placed During This Visit: yes, but has since been removed by the nurse Reason for Continuing Indwelling Catheter: Decision to DC Catheter Urinary Catheter Date of Insertion: 12/24/24 Urinary Catheter Time of Insertion: 06:45 Date Urinary Catheter Removed: 12/24/24 Time Urinary Catheter Discontinued: 15:50 History History History 2 Term 1 0 Miscarriages/Ectopic 0 Living Children 1 Discharge Data Studies Completed and Pending Laboratory Results WBC 16.47 10^3/uL (3.29-11.43) H 12/25/24 04:00 RBC 3.53 10^6/uL (3.85-5.65) L 12/25/24 04:00 Hgb 10.30 g/dL (11.27-16.99) L 12/25/24 04:00 Hct 31.6 % (36-47) L 12/25/24 04:00 MCV 89.5 fl (85-98) 12/25/24 04:00 MCH 29.2 pg (27-33) 12/25/24 04:00 MCHC 32.6 g/dL (30-55) 12/25/24 04:00 RDW 13.1 % (12.1-15.1) 12/25/24 04:00 Plt Count 263 10^3/cmm (157-399) 12/25/24 04:00 MPV 10.0 fL (7.4-10.4) 12/25/24 04:00 Neut % (Auto) 65.8 % 12/24/24 03:20 Lymph % (Auto) 22.4 % 12/24/24 03:20 [place] % (Auto) 8.3 % 12/24/24 03:20 Eos % (Auto) 0.6 % 12/24/24 03:20 Baso % (Auto) 0.3 % 12/24/24 03:20 Neut # (Auto) 7.68 10^3/uL (1.8-7.7) 12/24/24 03:20 Lymph # (Auto) 2.6 10^3/uL (0.8-4.8) 12/24/24 03:20 [place] # (Auto) 1.0 10^3/uL (0.2-0.9) H 12/24/24 03:20 Eos # (Auto) 0.1 10^3/uL (0.0-0.8) 12/24/24 03:20 Baso # (Auto) 0.0 10^3/uL (0.0-0.1) 12/24/24 03:20 Nucleated RBC % (auto) 0 % 12/24/24 03:20 Nucleated RBCs # 0.0 /100WBC 12/24/24 03:20 Urine Opiates Screen Negative ng/mL (Negative) 12/24/24 04:24 Ur Barbiturates Screen Negative ng/mL (Negative) 12/24/24 04:24 Ur Phencyclidine Scrn Negative ng/mL (Negative) 12/24/24 04:24 Ur Amphetamines Screen Negative ng/mL (Negative) 12/24/24 04:24 U Benzodiazepines Scrn Negative ng/mL (Negative) 12/24/24 04:24 Urine Cocaine Screen Negative ng/mL (Negative) 12/24/24 04:24 U Marijuana (THC) Screen Negative ng/mL (Negative) 12/24/24 04:24 Blood Type O Negative 12/24/24 03:20 Rho(D) Type Rh negative 12/24/24 03:20 Antibody Screen Negative 12/24/24 03:20 Screen Negative (Negative) 12/25/24 04:00 Procedures Performed vaginal delivery repair of periurethral and labial lacerations Vitals Last Vital Signs Temp 98.0 F 12/26/24 18:06 Pulse 82 12/26/24 18:06 Resp 18 12/26/24 18:06 BP 138/90 12/26/24 18:06 Pulse Ox 99 12/26/24 18:06 O2 Del Method Room Air 12/26/24 16:00 Results Labs OB ([facility]): Obstetrics US 11/18/24 Blood Type O Negative 12/24/24 Antibody Screen Negative 12/24/24 Hct, (36-47) 31.6 % L 12/25/24 Hgb, (11.27-16.99) 10.30 g/dL L 12/25/24 Rho(D) Type Rh negative 12/24/24 Plt Count, (157-399) 263 10^3/cmm 12/25/24 Hep Bs Antigen, (Nonreactive) Non-reactive 06/03/24 Hepatitis C Antibody, (Nonreactive) Non-reactive 06/03/24 Rubella IgG Antibody, (0.0-10.0) 56.4 IU/mL H 06/03/24 RPR, (Nonreactive) Nonreactive 06/03/24 HIV 1&2 Ab & HIV 1 Ag, (Non-Reactiv) Non-reactive 06/03/24 TSH, (0.27-4.20) 5.10 uIU/mL H 12/02/24 Free T4, (0.82-1.77) 0.78 ng/dL L 10/16/24 Glucose 1 Hr 50 gm, (85-140) 97 mg/dL 10/16/24 Ser , Semi-Qnt 980189.00 mIU/mL 05/14/24 HCG, Qual, (Negative) Positive H 05/09/24 Urine Opiates Screen, (Negative) Negative ng/mL 12/24/24 Ur Barbiturates Screen, (Negative) Negative ng/mL 12/24/24 Ur Phencyclidine Scrn, (Negative) Negative ng/mL 12/24/24 Ur Amphetamines Screen, (Negative) Negative ng/mL 12/24/24 U Benzodiazepines Scrn, (Negative) Negative ng/mL 12/24/24 Urine Cocaine Screen, (Negative) Negative ng/mL 12/24/24 U Marijuana (THC) Screen, (Negative) Negative ng/mL 12/24/24 Micro Urine Specimen 06/03/24 Pap Smear Interpret See note 06/19/24 Discharge Plan Discharge Patient Disposition: Home Condition: Stable Prescriptions: Continued sumatriptan succinate 25 mg tablet See Rx Instructions PO .COMPLEX Qty: 10 0RF Rx Instructions: take 1 tab at onset of headache; if no relief may repeat 1 tab after at least 2 hrs; max = 4 tabs/24 hr PO metoprolol tartrate 25 mg tablet 12.5 mg PO BID Qty: 45 1RF levothyroxine 75 mcg tablet See Rx Instructions .ROUTE .COMPLEX Qty: 30 0RF Dose Instruction: TAKE 1 TABLET BY MOUTH EVERY DAY Rx Instructions: TAKE 1 TABLET BY MOUTH EVERY DAY Discharge Order = DC NOW: Discharge Order (Routine); Ordered 12/26/24 Ordered By: Murali Brooks Referrals: Josy Keys, TUCKER [Nurse Practitioner, RN DOCUMENTATION] - 01/28/25 12:45 pm Discharge Diet: Usual diet Discharge Activity: Increase activity as tolerated Patient Instructions: Metoprolol (By mouth) (Lopressor, Toprol XL), Levothyroxine (By mouth) (Levothroid, Levoxyl, Synthroid, Tirosint), Sumatriptan (By mouth), Depression (DC), Bleeding (DC), Preeclampsia and Eclampsia After Delivery (GEN), Hemorrhage (DC), OB Discharge Report, OB Food/Drug Interaction Guide, OB Care at Home, Opioid Safety, OB Home Care, OB Vaginal Deliveries - [facility], Patient Portal & [place] Instructions Discharge Attestations RN DOCUMENTATION Time Spent in Discharge Care*: less than 30 min Coding Level of Care Code Acute Code for Chg Fwd Diagnoses Vaginal delivery O80
[2024-12-26 16:00] VITALS: BP 127/90; PULSE 69; RESP 18; TEMP 36.7; O2SAT 100
[2024-12-26 18:06] VITALS: BP 138/90; PULSE 82; RESP 18; TEMP 36.7; O2SAT 99
== END 2024-12-26 18:07 | disposition home or self-care (01) | DRG 807 ==
LOC: OPOB 04:16 → OBGYN 04:16
PROVIDERS: Admitting Provider Obstetrics & Gynecology; PCP Family Medicine; Visit Provider Obstetrics & Gynecology
DX: O99.824 Streptococcus B carrier state complicating childbirth (principal); Z37.0 Single live birth; O99.284 Endocrine, nutritional and metabolic diseases complicating childbirth; E06.3 Autoimmune thyroiditis; O69.81X0 Labor and delivery complicated by cord around neck, without compression, not applicable or unspecified; O70.0 First degree perineal laceration during delivery; Z3A.39 39 weeks gestation of pregnancy; O99.354 Diseases of the nervous system complicating childbirth; G43.709 Chronic migraine without aura, not intractable, without status migrainosus; O71.82 Other specified trauma to perineum and vulva
CPT/HCPCS: 36415; 36430; 51702; 59025; 59409; 80306; 85025; 85027; 85460; 86850; 86900; 90384; 99211; J2590; J2795; J3490; J7030; J7121; J9999

== ENCOUNTER → 2025-02-05 14:41 | Outpatient (BNVA) | payer BC, MEDICAID, SELFPAY | PROVIDERS: PCP Family Medicine; Visit Provider Family Medicine | DX: E06.3 Autoimmune thyroiditis (principal) | CPT/HCPCS: 80053; 84439; 84443; 85025 ==

== ENCOUNTER → 2025-04-14 09:07 | Outpatient (BNVA) | payer BC, MEDICAID, SELFPAY | PROVIDERS: PCP Family Medicine; Visit Provider Family Medicine | DX: E06.3 Autoimmune thyroiditis (principal) | CPT/HCPCS: 84439; 84443 ==